=== PATIENT | female | born 1965 | race Caucasian/White ===

== ENCOUNTER 2022-01-07 16:40 | Inpatient (IN) ==
[2022-01-07] MEDS ORDERED: VANCOMYCIN 1,000 MG in 0.9 % SODIUM CHLORIDE 250 ML IV ONE (17:01)
[2022-01-07 17:48] LABS: Basophils # (Auto) 0.03 K/mcL (0.00-0.30); Basophils % (Auto) 0.5 % (0.0-2.0); Eosinophils # (Auto) 0.21 K/mcL (0.00-0.70); Eosinophils % (Auto) 3.5 % (0.0-7.0); Hemoglobin 12.7 g/dL (11.2-15.7); Lymphocytes # (Auto) 2.15 K/mcL (1.50-4.80); Lymphocytes % (Auto) 35.7 % (15.5-49.0); Mean Cell Volume 89.8 fL (80.0-100.0); Mean Corpuscular HGB Conc 34.3 g/dL (31.0-36.0); Mean Platelet Volume 9.6 fL (7.4-10.4); Monocytes # (Auto) 0.42 K/mcL (0.10-0.90); Neutrophils % (Auto) 53.3 % (38.0-78.0); Platelet Count 260 K/mcL (140-440); RBC 4.12 M/mcL (3.59-5.38); Red Cell Distribution Width 12.3 % (11.5-14.5)
[2022-01-07] MEDS ORDERED: PIPERACILLIN SODIUM/TAZOBACTAM 4.5 GM in DEXTROSE 5% IN WATER 50 ML IV ONE (17:54)
[2022-01-07 18:06] LABS: Blood Urea Nitrogen 19 mg/dL (6-20); Calcium 9.4 mg/dL (8.6-10.4); Carbon Dioxide 26 mmol/L (22-30); Chloride 106 mmol/L (96-108); Glomerular Filtration Rate 109; Glucose 108 mg/dL (70-105)
--- NOTE | 2022-01-07 19:02 | Emergency Department Note ---
HPI General Chief complaint: Eye Problems Stated complaint: Eye problems Time Seen by Provider: 01/07/22 16:49 Source: patient Mode of arrival: ambulatory Limitations: no limitations History of Present Illness HPI Narrative: Narrative: 56-year-old female with history of complex left maxillary/zygomatic fracture wit h nerve entrapment, multiple surgeries for revision and infection, now on approximately a month of p.o. antibiotics following with ENT presents for evaluation of facial purulent drainage and erythema and swelling in the same area. She denies fever chills or systemic symptoms. She was sent in by Dr Frances for IV antibiotics and surgical planning Related Data Home Medications Medication Instructions Recorded Confirmed Adult One Daily Multivitamin 1 tab PO DAILY 01/07/22 01/07/22 Calcium-Vitamin D 1 tab PO DAILY 01/07/22 01/07/22 acetaminophen 1,000 mg PO Q6HP PRN 01/07/22 01/07/22 ascorbate calcium (vitamin C) 1 tab PO DAILY 01/07/22 01/07/22 Allergies Allergy/AdvReac Type Severity Reaction Status Date / Time No Known Intolerances Allergy Unknown Verified 01/07/22 16:43 Review of Systems ROS ROS Narrative: Narrative: All systems ED: reviewed and negative except as stated. PFSH Narrative Patient History Narrative: Narrative: Medical/Surgical/Family History All Active Problems (Updated 01/09/22 @ 22:19 by Steve Man DO) Abscess of face (Acute) Social History Smoking Status: Never smoker Exam Narrative Narrative: Narrative: General Limitations: no limitations General appearance: Present alert and in no apparent distress Head Head: Present atraumatic and normocephalic Eye Eye: Present normal appearance, PERRL, EOMI (Left eye extraocular motion sligh tly limited, patient reports this is chronic but does get diplopia with left upward gaze) and periorbital swelling (Left lower lid edema erythema and warmth, purulent drainage from wound underlying the lid) ENT ENT: Present normal exam and normal oropharynx Neck Neck: Present normal inspection and full ROM Chest Chest: Present normal inspection and symmetric chest wall rise Respiratory Respiratory: Absent respiratory distress Cardiovascular Cardiovascular: Present regular rate and normal rhythm Extremities Extremities: Present normal inspection and full ROM Back Back: Present normal inspection and full ROM Neurological Neurological: Present alert, oriented X3 and normal gait Psychiatric Psychiatric: Present normal affect and normal mood Skin Skin: Present warm (WNL), dry and normal color Course Vital Signs Vital signs: Vital Signs Temperature 99.1 F H 01/07/22 16:40 Pulse Rate 78 01/07/22 16:40 Respiratory Rate 14 01/07/22 16:40 Blood Pressure 138/92 01/07/22 16:40 Pulse Oximetry (%) 97 01/07/22 16:40 Temperature 97.9 F 01/09/22 15:28 Pulse Rate 75 01/09/22 15:28 Respiratory Rate 16 01/09/22 15:28 Blood Pressure 113/60 01/09/22 15:28 Pulse Oximetry (%) 98 01/09/22 15:28 MDM MDM Narrative Medical decision making narrative: Narrative: Patient with facial abscess and cellulitis failure of outpatient antibiotics. Sent in by ENT for perioperative antibiotics and surgical planning. She has multiple organisms on prior culture several weeks ago including anaerobic. We will give broad-spectrum IV coverage, admit for planning Lab Data Result diagrams: 01/07/22 17:15 01/09/22 08:00 Labs: Lab Results 01/07/22 01/07/22 Range/Units 17:15 17:15 WBC 6.0 (4.5-11.0) K/mcL RBC 4.12 (3.59-5.38) M/mcL Hgb 12.7 (11.2-15.7) g/dL Hct 37.0 (34.1-44.9) % MCV 89.8 (80.0-100.0) fL MCH 30.8 (26.0-34.0) pg MCHC 34.3 (31.0-36.0) g/dL RDW 12.3 (11.5-14.5) % Plt Count 260 (140-440) K/mcL MPV 9.6 (7.4-10.4) fL Neut % (Auto) 53.3 (38.0-78.0) % Lymph % (Auto) 35.7 (15.5-49.0) % [place] % (Auto) 7.0 (1.0-12.0) % Eos % (Auto) 3.5 (0.0-7.0) % Baso % (Auto) 0.5 (0.0-2.0) % Lymph # (Auto) 2.15 (1.50-4.80) K/mcL [place] # (Auto) 0.42 (0.10-0.90) K/mcL Eos # (Auto) 0.21 (0.00-0.70) K/mcL Baso # (Auto) 0.03 (0.00-0.30) K/mcL Absolute Neutrophils 3.22 (1.80-8.00) K/mcL Sodium 140 (133-145) mmol/L Potassium 4.0 (3.3-5.1) mmol/L Chloride 106 (96-108) mmol/L Carbon Dioxide 26 (22-30) mmol/L Anion Gap 8.0 (8.0-16.0) BUN 19 (6-20) mg/dL Creatinine 0.5 L (0.6-1.1) mg/dL GFR Calculation 109 Glucose 108 H (70-105) mg/dL Calcium 9.4 (8.6-10.4) mg/dL ED POC Tests ED POC Tests: BOYD - SARS Antigen Negative Discharge Plan Patient/Caregiver Discharge Instructions Pt seen by BARREL WATERER/PA only: No Clinical Impression: Abscess of face Patient Disposition: Still a Patient Condition: Good Discharge Date/Time: 01/07/22 21:29 Discharge Location: [facility] [facility] Discharge Comment: to room 132
--- NOTE | 2022-01-07 20:50 | Internal Med History&Physical ---
HPI History of Present Illness Patient information: Note initiated : 01/07/22 at 8:44 pm Service Date, if different from initiated Date: [] Patient: Kat Stanton a 56 y/o F admitted on for Eye problems. Chief Complaint: [] Chief complaint: Facial cellulitis and surgical site infection. History of present illness: Ms. Stanton is a 56 year old female with a history of being kicked by a horse in the face on December 08 followed by facial reconstruction involving hardware placement that was unfortunately complicated by a surgical site infection. The patient has received multiple courses of Augmentin however continues to have facial edema and pus draining from a surgical incision under her left eye. My understanding is that the patient had 1 piece of hardware removed but continued to have purulent drainage from the surgical incision. The patient contacted Dr. Crowe with ENT regarding this infection, Dr. Crowe informed the patient to go to the [facility] emergency department for admission for an tibiotics and surgical intervention. The patient arrives to the emergency department in stable condition, vitals are normal except for high-grade temperature 99.1. CBC was normal, renal function panel was unremarkable. The patient was started on vancomycin and Zosyn in the emergency department. Hospital medicine consulted for admission. Review of systems Constitutional: no fever, fatigue, or weight loss HENT: Left infraorbital edema, purulent fluid draining from infraorbital incision. Eyes: no vision changes or pain Cardiovascular: no chest pain, no palpitations Respiratory: no cough or dyspnea Gastrointestinal: no abdominal pain, no nausea, vomiting, or diarrhea Genitourinary: no dysuria or difficulty voiding Musculoskeletal: no arthralgia or myalgia Integumentary: no skin lesion or wound Neurological: no focal weakness or numbness Psychiatric: no anxiety or depression Physical exam Head: Edema below orbit, purulent fluid draining from surgical incision. Eyes: normal appearance, no scleral icterus. Neck: full ROM Respiratory: no respiratory distress. Cardiovascular: normal rate and rhythm, S1, S2. GI/Abdominal: soft, nontender, no guarding. Extremities: full range of motion, nontender. Neurological: CN II-XII intact, intact motor, intact sensation. Psychiatric: normal mood. Skin: warm, normal color MEDS/ALLERGIES Home Medications and Allergies Allergies Allergy/AdvReac Type Severity Reaction Status Date / Time No Known Intolerances Allergy Unknown Verified 01/07/22 16:43 EXAM Constitutional Vitals: Temp Pulse Resp BP Pulse Ox 99.1 F H 78 14 138/92 97 01/07/22 16:40 01/07/22 16:40 01/07/22 16:40 01/07/22 16:40 01/07/22 16:40 DATA Data Completed and Pending Labs: Labs from last 24 hours 01/07/22 01/07/22 17:15 17:15 WBC 6.0 RBC 4.12 Hgb 12.7 Hct 37.0 MCV 89.8 MCH 30.8 MCHC 34.3 RDW 12.3 Plt Count 260 MPV 9.6 Neut % (Auto) 53.3 Lymph % (Auto) 35.7 Gem % (Auto) 7.0 Eos % (Auto) 3.5 Baso % (Auto) 0.5 Lymph # (Auto) 2.15 Gem # (Auto) 0.42 Eos # (Auto) 0.21 Baso # (Auto) 0.03 Absolute Neutrophils 3.22 Sodium 140 Potassium 4.0 Chloride 106 Carbon Dioxide 26 Anion Gap 8.0 BUN 19 Creatinine 0.5 L GFR Calculation 109 Glucose 108 H Calcium 9.4 Preliminary micro results at discharge 01/07/22 17:22 Gram Stain - Preliminary Face - Left A/P Narrative A/P Narrative: Assessment: 56-year-old female with a history of being kicked in the face by a horse in early December followed by facial reconstructive surgery involving hardware unfortunately complicated by a surgical site infection. The patient presented to [facility] for admission for IV antibiotics and consultation by ENT. ENT is planning for surgery. Plan -Vancomycin and Zosyn. -Analgesics as needed. -Bowel regimen. -Type and screen. -CRP -ENT consulted. -N.p.o. after midnight. -CODE STATUS: Hydrometeorological Technician Spent With Patient Time: Total time spent is greater than 50% in coordination of care (as documented) at patient's floor/unit and/or counseling patient:
[2022-01-07] MEDS ORDERED: HYDROcodone/APAP 5/325MG TABLET PO PRN (21:38)
[2022-01-07] MEDS ORDERED: ONDANSETRON 4 MG/2 ML VIAL IV PRN (21:38)
[2022-01-07] MEDS ORDERED: POLYETHYLENE GLYCOL 3350 17 GM PACKET PO PRN (21:38)
[2022-01-07] MEDS ORDERED: VANCOMYCIN PER PHARMACY IV ONE (21:38)
[2022-01-07] MEDS ORDERED: ACETAMINOPHEN 325 MG TABLET PO PRN (21:38)
[2022-01-07] MEDS ORDERED: IBUPROFEN 600 MG TABLET PO PRN (21:38)
[2022-01-07] MEDS ORDERED: 0.9 % SODIUM CHLORIDE 250 ML IV SCH (21:38)
[2022-01-07] MEDS: SENNOSIDES 1 TABLET PO SCH (21:56)
[2022-01-07] MEDS: 0.9 % SODIUM CHLORIDE 10 ML SYRINGE IV SCH (22:22)
[2022-01-08] MEDS: PIPERACILLIN SODIUM/TAZOBACTAM 4.5 GM in DEXTROSE 5% IN WATER 50 ML IV SCH ×4 (00:03→18:09)
[2022-01-08] MEDS: 0.9 % SODIUM CHLORIDE 10 ML SYRINGE IV SCH ×4 (05:13→22:37)
[2022-01-08] MEDS ORDERED: VANCOMYCIN PER PHARMACY IV SCH (06:00)
[2022-01-08 07:36] LABS: C-Reactive Protein < 0.30 mg/dL (0.03-0.80)
[2022-01-08] MEDS: VANCOMYCIN 1,000 MG in 0.9 % SODIUM CHLORIDE 250 ML IV SCH ×2 (09:11→20:54)
[2022-01-08] MEDS ORDERED: ACETAMINOPHEN 650 MG/65 ML BAG IV PRN (09:23)
[2022-01-08] MEDS ORDERED: HYDROmorphone 0.5 MG/0.5 ML SYRINGE IV PRN (09:23)
[2022-01-08] MEDS ORDERED: SCOPOLAMINE 1 PATCH PATCH TOPICAL ONE (10:00)
[2022-01-08] MEDS ORDERED: IPRATROPIUM/ALBUTEROL 3 ML AMPUL.NEB NEB PRN ×2 (11:47→15:30)
[2022-01-08] MEDS ORDERED: diphenhydrAMINE 50 MG/ML VIAL ONE (13:35)
[2022-01-08] MEDS ORDERED: LIDOCAINE HCL/PF 100 MG/5 ML SYRINGE IV ONE (13:35)
[2022-01-08] MEDS ORDERED: PROMETHAZINE 25 MG/ML VIAL ONE (13:35)
[2022-01-08] MEDS ORDERED: DEXAMETHASONE 10 MG/ML VIAL ONE (13:35)
[2022-01-08] MEDS ORDERED: METOCLOPRAMIDE 10 MG/2 ML VIAL ONE (13:35)
[2022-01-08] MEDS ORDERED: ROCURONIUM 10 MG/ML ML IV ONE (13:35)
[2022-01-08] MEDS ORDERED: GLYCOPYRROLATE 0.2 MG/ML VIAL IV ONE (13:35)
[2022-01-08] MEDS ORDERED: FAMOTIDINE/PF 20 MG/2 ML VIAL IV ONE (13:35)
[2022-01-08] MEDS ORDERED: KETAMINE 50 MG/ML Syringe (ANEST) IV ONE (13:35)
[2022-01-08] MEDS ORDERED: TRANEXAMIC ACID 1,000 MG/10 ML VIAL ONE (13:35)
[2022-01-08] MEDS ORDERED: MAGNESIUM SULFATE 2 GM/50 ML BAG IV ONE (13:35)
[2022-01-08] MEDS ORDERED: PROPOFOL 200 MG/20 ML VIAL IV ONE (13:35)
[2022-01-08] MEDS ORDERED: fentaNYL 100 MCG/2 ML VIAL IV ONE (13:35)
[2022-01-08] MEDS ORDERED: SUGAMMADEX SODIUM 200 MG/2 ML VIAL IV ONE (13:35)
[2022-01-08] MEDS ORDERED: ONDANSETRON 4 MG/2 ML VIAL ONE (13:35)
[2022-01-08] MEDS ORDERED: LIDOCAINE W/EPI 1% 20 ML VIAL IJ ONE (14:10)
[2022-01-08] MEDS ORDERED: OXYMETAZOLINE 1 NASAL SPRAY BOTTLE NAS ONE (14:54)
[2022-01-08] MEDS ORDERED: [UNRECOGNIZED DRUG - OTHER] OU ONE (14:55)
[2022-01-08] MEDS ORDERED: fentaNYL 100 MCG/2 ML VIAL IV PRN (15:30)
[2022-01-08] MEDS ORDERED: ONDANSETRON 4 MG/2 ML VIAL IV PRN (15:30)
[2022-01-08] MEDS ORDERED: LACTATED RINGERS 250 ML IV PRN (15:30)
[2022-01-08] MEDS ORDERED: ACETAMINOPHEN 1,000 MG/100 ML BAG IV ONE (15:30)
[2022-01-08] MEDS ORDERED: MEPERIDINE 25 MG/ML VIAL IV PRN (15:30)
[2022-01-08] MEDS ORDERED: LACTATED RINGERS 1,000 ML IV SCH (15:30)
[2022-01-08] MEDS ORDERED: PROMETHAZINE 25 MG/ML VIAL IV PRN (15:30)
[2022-01-08] MEDS ORDERED: NALOXONE HCL 0.4 MG/ML VIAL IV PRN (15:30)
[2022-01-08] MEDS: KETOROLAC 15 MG/ML VIAL IV PRN (15:51)
--- NOTE | 2022-01-08 16:10 | Internal Med Progress Note ---
SUBJECTIVE Subjective Patient information: Note initiated : 01/08/22 at 4:10 pm Service Date, if different from initiated Date: [] Patient: Kat Stanton a 56 y/o F admitted on 01/07/22 for Eye problems. Chief Complaint: [] Interval history: Ms. Stanton is a 56 year old female with a history of being kicked by a horse in the face on December 08 followed by facial reconstruction involving hardware placement that was unfortunately complicated by a surgical site infection. The patient has received multiple courses of Augmentin however continues to have facial edema and pus draining from a surgical incision under her left eye. My understanding is that the patient had 1 piece of hardware removed but continued to have purulent drainage from the surgical incision. The patient contacted Dr. Crowe with ENT regarding this infection, Dr. Crowe informed the patient to go to the [facility] emergency department for admission for a ntibiotics and surgical intervention. The patient arrives to the emergency department in stable condition, vitals are normal except for high-grade temperature 99.1. CBC was normal, renal function panel was unremarkable. The patient was started on vancomycin and Zosyn in the emergency department. Hospital medicine consulted for admission. 01/08 Going to surgery today. Physical exam Head: Edema below orbit, purulent fluid draining from surgical incision. Eyes: normal appearance, no scleral icterus. Neck: full ROM Respiratory: no respiratory distress. Cardiovascular: normal rate and rhythm, S1, S2. GI/Abdominal: soft, nontender, no guarding. Extremities: full range of motion, nontender. Neurological: CN II-XII intact, intact motor, intact sensation. Psychiatric: normal mood. Skin: warm, normal color Constitutional Vitals: Vital Signs Temp Pulse Resp BP Pulse Ox 99.3 F H 91 H 19 124/88 96 01/08/22 16:07 01/08/22 16:07 01/08/22 16:07 01/08/22 16:06 01/08/22 16:07 Period Temp Pulse Resp BP Sys/Kee Pulse Ox Last 24 Hr 97.7 F-99.8 F 71-95 8-28 108-144/71-96 95-100 Intake and Output 01/08/22 01/08/22 01/08/22 05:59 13:59 21:59 Intake Total 284 005 7190 Output Total 300 150 Balance 75 365 1150 Weight 78.88 kg Patient Weight 01/09/22 05:59 Weight 78.88 kg Intake & Output: Intake & Output 01/08/22 01/08/22 01/08/22 05:59 13:59 21:59 Intake Total 496 465 1432 Output Total 300 150 Balance 75 365 1150 Weight 78.88 kg Intake: IV 135 365 Sodium Chloride 0.9% 250 ml @ 35 20 mls/hr IV .[id number] [facility] Rx#: [id number] Zosyn 4.5 gm In Dextrose 5% in 100 50 Water 50 ml @ 100 mls/hr IV Q6H [facility] Rx#:[id number] Vancomycin 1,000 mg In Sodium 250 Chloride 0.9% 250 ml @ 250 mls/ hr IV Q12H [facility] Rx#:[id number] Oral 240 IV - Manual Only 1300 Output: Void Amount 300 Estimated Blood Loss 150 OBJ DATA Labs CBC & Chem 7: 01/07/22 17:15 01/07/22 17:15 Labs: Abnormal Lab Results 01/07/22 17:15 Creatinine 0.5 L Glucose 108 H Meds: Medications Albuterol/Ipratropium (Ipratropium/Albuterol 3 Ml Ampul.Neb) 3 ml NEB ONCE PRN PRN Reason: Wheezing Stop: 01/08/22 17:30 Fentanyl (Fentanyl 100 Mcg/2 Ml Vial) 25 mcg IV Q2M PRN PRN Reason: Pain Stop: 01/08/22 17:31 Hydromorphone HCl (Hydromorphone 0.5 Mg/0.5 Ml Syringe) 0.5 mg IV Q2HP PRN; Protocol PRN Reason: Per Pain Protocol Piperacillin Sod/Tazobactam (Sod 4.5 gm/ Dextrose) 50 mls @ 100 mls/hr IV Q6H [facility]; Protocol Last Infusion: 01/08/22 13:25 Dose: Infused Documented by: Vancomycin HCl 1,000 mg/ (Sodium Chloride) 250 mls @ 250 mls/hr IV Q12H [facility] Last Infusion: 01/08/22 10:48 Dose: Infused Documented by: Acetaminophen (Ofirmev) 650 mg in 65 mls @ 130 mls/hr IV Q6HP PRN; Protocol PRN Reason: PAIN/FEVER > 101 Last Infusion: 01/08/22 12:12 Dose: Infused Documented by: Lactated Ringer's (Lactated Ringers) 1,000 mls @ 0 mls/hr IV PRN PRN PRN Reason: Hypovolemia Stop: 01/08/22 17:30 Lactated Ringer's (Lactated Ringers) 1,000 mls @ 20 mls/hr IV .Q24H [facility] Stop: 01/08/22 17:31 Ketorolac Tromethamine (Ketorolac 15 Mg/Ml Vial) 15 mg IV Q6HP PRN PRN Reason: Pain Stop: 01/10/22 09:27 Last Admin: 01/08/22 15:51 Dose: 15 mg Documented by: Meperidine HCl (Meperidine 25 Mg/Ml Vial) 12.5 mg IV Q5M PRN PRN Reason: Shivering Stop: 01/08/22 17:31 Last Admin: 01/08/22 15:54 Dose: 12.5 mg Documented by: Naloxone HCl (Naloxone Hcl 0.4 Mg/Ml Vial) 0.1 mg IV Q2MIN PRN PRN Reason: Opiate Reversal Stop: 01/08/22 17:31 Ondansetron HCl (Ondansetron 4 Mg/2 Ml Vial) 4 mg IV Q6HP PRN PRN Reason: Nausea And Vomiting Ondansetron HCl (Ondansetron 4 Mg/2 Ml Vial) 4 mg IV ONCE PRN PRN Reason: Nausea And Vomiting Stop: 01/08/22 17:31 Polyethylene Glycol (Polyethylene Glycol 3350 17 Gm Packet) 17 gm PO DAILYP PRN PRN Reason: Constipation Promethazine HCl (Promethazine 25 Mg/Ml Vial) 6.25 mg IV Q15M PRN PRN Reason: Nausea And Vomiting Stop: 01/08/22 17:31 Senna (Sennosides 1 Tablet) 2 tab PO HS [facility] Last Admin: 01/07/22 21:56 Dose: Not Given Documented by: Sodium Chloride (0.9 % Sodium Chloride 10 Ml Syringe) 10 ml IV Q8 [facility] Last Admin: 01/08/22 13:02 Dose: Not Given Documented by: Vancomycin HCl (Vancomycin Per Pharmacy) 1 order IV UD [facility]; Protocol A/P Narrative A/P Narrative: Assessment: 56-year-old female with a history of being kicked in the face by a horse in early December followed by facial reconstructive surgery involving hardware unfortunately complicated by a surgical site infection. The patient presented to [facility] for admission for IV antibiotics and consultation by ENT. ENT is planning for surgery. Plan -Vancomycin and Zosyn. -Analgesics as needed. -Bowel regimen. -Surgery today. -ENT consulted. -N.p.o. after midnight. -CODE STATUS: Preservationist Spent With Patient Time: Total time spent is greater than 50% in coordination of care (as documented) at patient's floor/unit and/or counseling patient: QUALITY VTE Deep Vein Thrombosis/Pulmonary Embolism Present on Admission: No
[2022-01-08] MEDS ORDERED: morphine 2 MG/ML VIAL IV PRN (16:13)
[2022-01-08] MEDS ORDERED: 0.9 % SODIUM CHLORIDE 10 ML SYRINGE IV PRN (18:38)
[2022-01-08] MEDS: BACITRACIN TOPICAL OINT 15 GM TUBE TOPICAL SCH (20:54)
[2022-01-08] MEDS: SENNOSIDES 1 TABLET PO SCH (20:54)
[2022-01-09] MEDS: PIPERACILLIN SODIUM/TAZOBACTAM 4.5 GM in DEXTROSE 5% IN WATER 50 ML IV SCH ×5 (00:22→23:45)
[2022-01-09] MEDS: KETOROLAC 15 MG/ML VIAL IV PRN ×4 (04:26→23:44)
[2022-01-09] MEDS: 0.9 % SODIUM CHLORIDE 10 ML SYRINGE IV SCH ×6 (05:24→21:02)
[2022-01-09] MEDS: VANCOMYCIN 1,500 MG in 0.9 % SODIUM CHLORIDE 500 ML IV SCH ×2 (10:24→20:59)
[2022-01-09] MEDS: BACITRACIN TOPICAL OINT 15 GM TUBE TOPICAL SCH ×2 (10:24→21:01)
[2022-01-09 11:30] LABS: Glomerular Filtration Rate 103
[2022-01-09] MEDS: VANCOMYCIN 1,000 MG in 0.9 % SODIUM CHLORIDE 250 ML IV SCH (12:14)
--- NOTE | 2022-01-09 15:11 | Internal Med Progress Note ---
SUBJECTIVE Subjective Patient information: Note initiated : 01/09/22 at 3:09 pm Service Date, if different from initiated Date: [] Patient: Kat Stanton a 56 y/o F admitted on 01/07/22 for Eye problems. Chief Complaint: [] Interval history: Ms. Stanton is a 56 year old female with a history of being kicked by a horse in the face on December 08 followed by facial reconstruction involving hardware placement that was unfortunately complicated by a surgical site infection. The patient has received multiple courses of Augmentin however continues to have facial edema and pus draining from a surgical incision under her left eye. My understanding is that the patient had 1 piece of hardware removed but continued to have purulent drainage from the surgical incision. The patient contacted Dr. Crowe with ENT regarding this infection, Dr. Crowe informed the patient to go to the [facility] emergency department for admission for a ntibiotics and surgical intervention. The patient arrives to the emergency department in stable condition, vitals are normal except for high-grade temperature 99.1. CBC was normal, renal function panel was unremarkable. The patient was started on vancomycin and Zosyn in the emergency department. Hospital medicine consulted for admission. 01/08 Going to surgery today. 01/09 Feeling ok post op, ENT recommends IV antibiotic at discharge that will cover gram negative including pseudomonas and anaerobes. Currently on Vancomycin and Zosyn. Physical exam Head: Edema resolved, facial hardware removed. Eyes: normal appearance, no scleral icterus. Neck: full ROM Respiratory: no respiratory distress. Cardiovascular: normal rate and rhythm, S1, S2. GI/Abdominal: soft, nontender, no guarding. Extremities: full range of motion, nontender. Neurological: CN II-XII intact, intact motor, intact sensation. Psychiatric: normal mood. Skin: warm, normal color Constitutional Vitals: Vital Signs Temp Pulse Resp BP Pulse Ox 98 F 77 18 114/65 96 01/09/22 11:35 01/09/22 11:35 01/09/22 11:35 01/09/22 11:35 01/09/22 11:35 Period Temp Pulse Resp BP Sys/Kee Pulse Ox Last 24 Hr 98 F-99.4 F 70-95 8-28 102-142/57-89 93-100 Intake and Output 01/09/22 01/09/22 01/09/22 05:59 13:59 21:59 Intake Total 450 600 Balance 450 600 Intake & Output: Intake & Output 01/09/22 01/09/22 01/09/22 05:59 13:59 21:59 Intake Total 450 600 Balance 450 600 Intake: IV 300 600 Zosyn 4.5 gm In Dextrose 5% in 50 100 Water 50 ml @ 100 mls/hr IV Q6H [facility] Rx#:[id number] Vancomycin 1,000 mg In Sodium 250 Chloride 0.9% 250 ml @ 250 mls/ hr IV Q12H [facility] Rx#:[id number] Vancomycin 1,500 mg In Sodium 500 Chloride 0.9% 500 ml @ 333.3 mls/hr IV Q12H [facility] Rx#: [id number] Oral 150 OBJ DATA Labs CBC & Chem 7: 01/07/22 17:15 01/09/22 08:00 Labs: Abnormal Lab Results 01/07/22 17:15 Creatinine 0.5 L Glucose 108 H Meds: Medications Bacitracin (Bacitracin Topical Oint 15 Gm Tube) 1 dose TOPICAL BID [facility] Last Admin: 01/09/22 10:24 Dose: 1 dose Documented by: Heparin Sodium (Porcine) (Heparin Flush 10 Units/Ml 5 Ml Syringe) 2 ml IV Q12 [facility] Last Admin: 01/09/22 09:04 Dose: Not Given Documented by: Hydromorphone HCl (Hydromorphone 0.5 Mg/0.5 Ml Syringe) 0.5 mg IV Q2HP PRN; Protocol PRN Reason: Per Pain Protocol Piperacillin Sod/Tazobactam (Sod 4.5 gm/ Dextrose) 50 mls @ 100 mls/hr IV Q6H [facility]; Protocol Last Infusion: 01/09/22 13:57 Dose: Infused Documented by: Acetaminophen (Ofirmev) 650 mg in 65 mls @ 130 mls/hr IV Q6HP PRN; Protocol PRN Reason: PAIN/FEVER > 101 Last Infusion: 01/08/22 12:12 Dose: Infused Documented by: Vancomycin HCl 1,500 mg/ (Sodium Chloride) 500 mls @ 333.3 mls/hr IV Q12H [facility] Last Infusion: 01/09/22 12:48 Dose: Infused Documented by: Ketorolac Tromethamine (Ketorolac 15 Mg/Ml Vial) 15 mg IV Q6HP PRN PRN Reason: Pain Stop: 01/10/22 09:27 Last Admin: 01/09/22 10:30 Dose: 15 mg Documented by: Morphine Sulfate (Morphine 2 Mg/Ml Vial) 2 mg IV Q4HP PRN; Protocol PRN Reason: Per Pain Protocol Ondansetron HCl (Ondansetron 4 Mg/2 Ml Vial) 4 mg IV Q6HP PRN PRN Reason: Nausea And Vomiting Polyethylene Glycol (Polyethylene Glycol 3350 17 Gm Packet) 17 gm PO DAILYP PRN PRN Reason: Constipation Senna (Sennosides 1 Tablet) 2 tab PO HS [facility] Last Admin: 01/08/22 20:54 Dose: 2 tab Documented by: Sodium Chloride (0.9 % Sodium Chloride 10 Ml Syringe) 10 ml IV Q8 [facility] Last Admin: 01/09/22 05:24 Dose: 10 ml Documented by: Sodium Chloride (0.9 % Sodium Chloride 10 Ml Syringe) 10 ml IV UD PRN PRN Reason: FLUSH Sodium Chloride (0.9 % Sodium Chloride 10 Ml Syringe) 10 ml IV Q12 [facility] Last Admin: 01/09/22 09:04 Dose: 10 ml Documented by: Vancomycin HCl (Vancomycin Per Pharmacy) 1 order IV UD [facility]; Protocol A/P Narrative A/P Narrative: Assessment: 56-year-old female with a history of being kicked in the face by a horse in early December followed by facial reconstructive surgery involving hardware unfortunately complicated by a surgical site infection. The patient presented to [facility] for admission for IV antibiotics and consultation by ENT. ENT is planning for surgery. Plan -Vancomycin and Zosyn while inpatient. -Analgesics as needed. -Will need PICC line for outpatient IV antibiotics. -Bowel regimen. -Surgery today. -ENT consulted. -Regular diet. -CODE STATUS: Full -Disposition: home with outpatient IV antibiotics via PICC for about 3 weeks. Time Spent With Patient Time: Total time spent is greater than 50% in coordination of care (as documented) at patient's floor/unit and/or counseling patient: QUALITY VTE Deep Vein Thrombosis/Pulmonary Embolism Present on Admission: No
[2022-01-09] MEDS ORDERED: 0.9 % SODIUM CHLORIDE 10 ML SYRINGE IV PRN (20:08)
[2022-01-09] MEDS: SENNOSIDES 1 TABLET PO SCH (22:40)
[2022-01-10] MEDS: 0.9 % SODIUM CHLORIDE 10 ML SYRINGE IV SCH ×6 (05:22→20:52)
[2022-01-10] MEDS: PIPERACILLIN SODIUM/TAZOBACTAM 4.5 GM in DEXTROSE 5% IN WATER 50 ML IV SCH (05:22)
--- NOTE | 2022-01-10 05:58 | Internal Med Progress Note ---
SUBJECTIVE Subjective Patient information: Note initiated : 01/10/22 at 5:56 am Service Date, if different from initiated Date: [] Patient: Kat Stanton a 56 y/o F admitted on 01/07/22 for Eye problems. Chief Complaint: [] Interval history: Ms. Stanton is a 56 year old female with a history of being kicked by a horse in the face on December 08 followed by facial reconstruction involving hardware placement that was unfortunately complicated by a surgical site infection. The patient has received multiple courses of Augmentin however continues to have facial edema and pus draining from a surgical incision under her left eye. My understanding is that the patient had 1 piece of hardware removed but continued to have purulent drainage from the surgical incision. The patient contacted Dr. Crowe with ENT regarding this infection, Dr. Crowe informed the patient to go to the [facility] emergency department for admission for a ntibiotics and surgical intervention. The patient arrives to the emergency department in stable condition, vitals are normal except for high-grade temperature 99.1. CBC was normal, renal function panel was unremarkable. The patient was started on vancomycin and Zosyn in the emergency department. Hospital medicine consulted for admission. 01/08 Going to surgery today. 01/09 Feeling ok post op, ENT recommends IV antibiotic at discharge that will cover gram positives, gram negatives including pseudomonas and anaerobes. Dr. Crowe does not feel that MRSA antibiotic coverage is necessary. Currently on Vancomycin and Zosyn. 01/10 Transition to vancomycin and meropenem, MRSA nasal PCR screen. PICC line may be placed tomorrow depending on availability of qualified staff. Physical exam Head: Edema resolved, facial hardware removed. Eyes: normal appearance, no scleral icterus. Neck: full ROM Respiratory: no respiratory distress. Cardiovascular: normal rate and rhythm, S1, S2. GI/Abdominal: soft, nontender, no guarding. Extremities: full range of motion, nontender. Neurological: CN II-XII intact, intact motor, intact sensation. Psychiatric: normal mood. Skin: warm, normal color Constitutional Vitals: Vital Signs Temp Pulse Resp BP Pulse Ox 98.2 F 67 18 98/62 95 01/10/22 04:00 01/10/22 04:00 01/10/22 04:00 01/10/22 04:00 01/10/22 04:00 Period Temp Pulse Resp BP Sys/Kee Pulse Ox Last 24 Hr 97.9 F-98.9 F 64-79 16-18 98-118/60-77 95-98 Intake and Output 01/09/22 01/09/22 01/10/22 13:59 21:59 05:59 Intake Total 688 457 8494 Output Total 450 800 Balance 600 -120 590 Weight 77.791 kg Patient Weight 01/10/22 05:59 Weight 77.791 kg Intake & Output: Intake & Output 01/09/22 01/09/22 01/10/22 13:59 21:59 05:59 Intake Total 833 503 5618 Output Total 450 800 Balance 600 -120 590 Weight 77.791 kg Intake: IV 600 50 550 Zosyn 4.5 gm In Dextrose 5% in 100 50 50 Water 50 ml @ 100 mls/hr IV Q6H [facility] Rx#:[id number] Vancomycin 1,500 mg In Sodium 500 500 Chloride 0.9% 500 ml @ 333.3 mls/hr IV Q12H [facility] Rx#: [id number] Oral 280 840 Output: Void Amount 450 800 Other: Meal Dinner Percent of Meal Consumed 50% Feeding Ability Independent Urine Appearance Clear Clear Urine Color Light Altagracia Light Altagracia Dark Altagracia Dark Altagracia Urine Odor Normal Normal OBJ DATA Labs CBC & Chem 7: 01/07/22 17:15 01/09/22 08:00 Labs: Abnormal Lab Results 01/07/22 17:15 Creatinine 0.5 L Glucose 108 H Meds: Medications Bacitracin (Bacitracin Topical Oint 15 Gm Tube) 1 dose TOPICAL BID [facility] Last Admin: 01/09/22 21:01 Dose: 1 dose Documented by: Heparin Sodium (Porcine) (Heparin Flush 10 Units/Ml 5 Ml Syringe) 2 ml IV Q12 [facility] Last Admin: 01/09/22 19:33 Dose: Not Given Documented by: Heparin Sodium (Porcine) (Heparin Flush 10 Units/Ml 5 Ml Syringe) 2 ml IV Q12 S Last Admin: 01/09/22 21:01 Dose: Not Given Documented by: Hydromorphone HCl (Hydromorphone 0.5 Mg/0.5 Ml Syringe) 0.5 mg IV Q2HP PRN; Protocol PRN Reason: Per Pain Protocol Piperacillin Sod/Tazobactam (Sod 4.5 gm/ Dextrose) 50 mls @ 100 mls/hr IV Q6H [facility]; Protocol Last Admin: 01/10/22 05:22 Dose: 100 mls/hr Documented by: Acetaminophen ([facility]) 650 mg in 65 mls @ 130 mls/hr IV Q6HP PRN; Protocol PRN Reason: PAIN/FEVER > 101 Last Infusion: 01/08/22 12:12 Dose: Infused Documented by: Vancomycin HCl 1,500 mg/ (Sodium Chloride) 500 mls @ 333.3 mls/hr IV Q12H [facility] Last Infusion: 01/09/22 23:45 Dose: Infused Documented by: Ketorolac Tromethamine (Ketorolac 15 Mg/Ml Vial) 15 mg IV Q6HP PRN PRN Reason: Pain Stop: 01/10/22 09:27 Last Admin: 01/09/22 23:44 Dose: 15 mg Documented by: Morphine Sulfate (Morphine 2 Mg/Ml Vial) 2 mg IV Q4HP PRN; Protocol PRN Reason: Per Pain Protocol Ondansetron HCl (Ondansetron 4 Mg/2 Ml Vial) 4 mg IV Q6HP PRN PRN Reason: Nausea And Vomiting Polyethylene Glycol (Polyethylene Glycol 3350 17 Gm Packet) 17 gm PO DAILYP PRN PRN Reason: Constipation Senna (Sennosides 1 Tablet) 2 tab PO HS [facility] Last Admin: 01/09/22 22:40 Dose: Not Given Documented by: Sodium Chloride (0.9 % Sodium Chloride 10 Ml Syringe) 10 ml IV Q8 [facility] Last Admin: 01/10/22 05:22 Dose: 10 ml Documented by: Sodium Chloride (0.9 % Sodium Chloride 10 Ml Syringe) 10 ml IV UD PRN PRN Reason: FLUSH Sodium Chloride (0.9 % Sodium Chloride 10 Ml Syringe) 10 ml IV Q12 [facility] Last Admin: 01/09/22 21:02 Dose: Not Given Documented by: Sodium Chloride (0.9 % Sodium Chloride 10 Ml Syringe) 10 ml IV UD PRN PRN Reason: FLUSH Sodium Chloride (0.9 % Sodium Chloride 10 Ml Syringe) 10 ml IV Q12 [facility] Last Admin: 01/09/22 21:00 Dose: 10 ml Documented by: Vancomycin HCl (Vancomycin Per Pharmacy) 1 order IV UD [facility]; Protocol A/P Narrative A/P Narrative: Assessment: 56-year-old female with a history of being kicked in the face by a horse in early December followed by facial reconstructive surgery involving hardware unfortunately complicated by a surgical site infection. The patient presented to [facility] for admission for IV antibiotics and consultation by ENT. The patient underwent surgery with removal of hardware. ENT felt the patient would need about 3 weeks of IV antibiotics via PICC line. ENT did not feel the patient would need MRSA coverage but would need coverage for other gram-positive's, gram-negative including Pseudomonas, anaerobes. Plan -Start meropenem IV every 8 hours. -Discontinue Zosyn -Continue vancomycin for now -MRSA nasal PCR. -Analgesics as needed. -Will need PICC line for outpatient IV antibiotics. -Bowel regimen. -ENT following. -Regular diet. -CODE STATUS: Full -Disposition: home with outpatient IV antibiotics via PICC for about 3 weeks with ENT follow-up. After infection has cleared the patient will need to follow-up with plastic surgery for facial reconstructive surgery. Time Spent With Patient Time: Total time spent is greater than 50% in coordination of care (as documented) at patient's floor/unit and/or counseling patient: QUALITY VTE Deep Vein Thrombosis/Pulmonary Embolism Present on Admission: No
[2022-01-10] MEDS ORDERED: HYDROcodone/APAP 5/325MG TABLET PO PRN (06:00)
[2022-01-10] MEDS ORDERED: MEROPENEM 1 GM in 0.9 % SODIUM CHLORIDE 50 ML IV SCH (08:00)
[2022-01-10] MEDS: MEROPENEM 1 GM in 0.9 % SODIUM CHLORIDE 50 ML IV SCH ×3 (08:16→20:49)
[2022-01-10] MEDS: BACITRACIN TOPICAL OINT 15 GM TUBE TOPICAL SCH ×2 (08:17→20:49)
[2022-01-10] MEDS ORDERED: VANCOMYCIN PER PHARMACY IV SCH (09:14)
[2022-01-10] MEDS: VANCOMYCIN 1,500 MG in 0.9 % SODIUM CHLORIDE 500 ML IV SCH ×2 (12:14→20:50)
--- NOTE | 2022-01-10 15:48 | Internal Med Progress Note ---
SUBJECTIVE Subjective Patient information: Note initiated : 01/10/22 at 3:39 pm Service Date, if different from initiated Date: [] Patient: Kat Stanton a 56 y/o F admitted on 01/07/22 for Eye problems. Chief Complaint: [] Interval history: Ms. Stanton is a 56 year old female with a history of being kicked by a horse in the face on December 08 followed by facial reconstruction involving hardware placement that was unfortunately complicated by a surgical site infection. The patient has received multiple courses of Augmentin however continues to have facial edema and pus draining from a surgical incision under her left eye. My understanding is that the patient had 1 piece of hardware removed but continued to have purulent drainage from the surgical incision. The patient contacted Dr. Crowe with ENT regarding this infection, Dr. Crowe informed the patient to go to the [facility] emergency department for admission for a ntibiotics and surgical intervention. The patient arrives to the emergency department in stable condition, vitals are normal except for high-grade temperature 99.1. CBC was normal, renal function panel was unremarkable. The patient was started on vancomycin and Zosyn in the emergency department. Hospital medicine consulted for admission. 01/08 Going to surgery today. 01/09 Feeling ok post op, ENT recommends IV antibiotic at discharge that will cover gram positives, gram negatives including pseudomonas and anaerobes. Dr. Crowe does not feel that MRSA antibiotic coverage is necessary. Currently on Vancomycin and Zosyn. 01/10 Transition to vancomycin and meropenem, MRSA nasal PCR screen. PICC line may be placed tomorrow depending on availability of qualified staff. 01/11 Continues on IV antibiotics. MRSA screen negative and will DC vancomycin. Wound culture growing Eikenella corrodens. Review of Systems: Pertinent positive as above. Denies headache/fever/chills/nausea/vomiting/chest or abdominal pain/cough/dyspnea/diarrhea. Otherwise see above. Constitutional Vitals: Vital Signs Temp Pulse Resp BP Pulse Ox 99.1 F H 61 18 104/72 99 01/10/22 12:00 01/10/22 12:00 01/10/22 12:00 01/10/22 12:00 01/10/22 12:00 Period Temp Pulse Resp BP Sys/Kee Pulse Ox Last 24 Hr 98.2 F-99.1 F 58-79 16-18 98-118/62-77 95-99 Intake and Output 01/10/22 01/10/22 01/10/22 05:59 13:59 21:59 Intake Total 1390 150 500 Output Total 800 Balance 590 150 500 Intake & Output: Intake & Output 01/10/22 01/10/22 01/10/22 05:59 13:59 21:59 Intake Total 1390 150 500 Output Total 800 Balance 590 150 500 Intake: IV 550 150 500 Merrem 1 gm In Sodium Chloride 100 0.9% 50 ml @ 100 mls/hr IV Q8H [facility] Rx#:[id number] Zosyn 4.5 gm In Dextrose 5% in 50 50 Water 50 ml @ 100 mls/hr IV Q6H [facility] Rx#:[id number] Vancomycin 1,500 mg In Sodium 500 500 Chloride 0.9% 500 ml @ 333.3 mls/hr IV Q12H [facility] Rx#: [id number] Oral 840 Output: Void Amount 800 Other: Meal Lunch Percent of Meal Consumed 100% Feeding Ability Independent Urine Appearance Clear Urine Color Light Altagracia Dark Altagracia Urine Odor Normal Exam: General: Alert, Awake, No acute Distress Eyes/N/T: EOMI, Head/Neck: Edema resolved, facial hardware removed CV: RRR, No murmurs, Pulm: Clear b/l, no wheezing/rhonchi/rales Abd: soft, nontender, +BS x4 Ext: no clubbing/cyanosis/edema Neuro: Alert, no focal deficits, moves all extremities, Skin: warm/dry OBJ DATA Labs CBC & Chem 7: 01/11/22 05:12 01/11/22 05:12 Labs: Abnormal Lab Results 01/07/22 17:15 Creatinine 0.5 L Glucose 108 H Meds: Medications Acetaminophen (Acetaminophen 325 Mg Tablet) 650 mg PO Q4-6HP PRN; Protocol PRN Reason: Per Pain Protocol Hydrocodone Bitart/Acetaminophen (Hydrocodone/Apap 5/325mg Tablet) 1 tab PO Q6HP PRN; Protocol PRN Reason: Per Pain Protocol Bacitracin (Bacitracin Topical Oint 15 Gm Tube) 1 dose TOPICAL BID [facility] Last Admin: 01/10/22 08:17 Dose: 1 dose Documented by: Heparin Sodium (Porcine) (Heparin Flush 10 Units/Ml 5 Ml Syringe) 2 ml IV Q12 [facility] Last Admin: 01/10/22 08:17 Dose: Not Given Documented by: Heparin Sodium (Porcine) (Heparin Flush 10 Units/Ml 5 Ml Syringe) 2 ml IV Q12 [facility] Last Admin: 01/10/22 08:17 Dose: Not Given Documented by: Meropenem 1 gm/ Sodium (Chloride) 50 mls @ 100 mls/hr IV Q8H [facility]; Protocol Last Infusion: 01/10/22 12:58 Dose: Infused Documented by: Vancomycin HCl 1,500 mg/ (Sodium Chloride) 500 mls @ 333.3 mls/hr IV Q12H [facility] Last Infusion: 01/10/22 15:26 Dose: Infused Documented by: Ibuprofen (Ibuprofen 200 Mg Tablet) 400 mg PO Q4HP PRN; Protocol PRN Reason: Per Pain Protocol Ondansetron HCl (Ondansetron 4 Mg/2 Ml Vial) 4 mg IV Q6HP PRN PRN Reason: Nausea And Vomiting Polyethylene Glycol (Polyethylene Glycol 3350 17 Gm Packet) 17 gm PO DAILYP PRN PRN Reason: Constipation Senna (Sennosides 1 Tablet) 2 tab PO HS [facility] Last Admin: 01/09/22 22:40 Dose: Not Given Documented by: Sodium Chloride (0.9 % Sodium Chloride 10 Ml Syringe) 10 ml IV Q8 [facility] Last Admin: 01/10/22 05:22 Dose: 10 ml Documented by: Sodium Chloride (0.9 % Sodium Chloride 10 Ml Syringe) 10 ml IV UD PRN PRN Reason: FLUSH Last Admin: 01/10/22 08:18 Dose: 10 ml Documented by: Sodium Chloride (0.9 % Sodium Chloride 10 Ml Syringe) 10 ml IV Q12 [facility] Last Admin: 01/10/22 10:05 Dose: 10 ml Documented by: Sodium Chloride (0.9 % Sodium Chloride 10 Ml Syringe) 10 ml IV UD PRN PRN Reason: FLUSH Last Admin: 01/10/22 08:18 Dose: 10 ml Documented by: Sodium Chloride (0.9 % Sodium Chloride 10 Ml Syringe) 10 ml IV Q12 [facility] Last Admin: 01/10/22 10:05 Dose: 10 ml Documented by: Vancomycin HCl (Vancomycin Per Pharmacy) 1 order IV UD [facility]; Protocol A/P Narrative A/P Narrative: A: *Facial cellulitis / surgical site infection (previously kicked in face by horse > reconstructive surgery in December): -seen by ENT who removed hardware (01/09) Plan -ENT felt the patient would need 3-weeks of IV antibiotics via PICC line & did not feel needed MRSA coverage but would need coverage for other gram-positive's & GN's including Pseudomonas & anaerobes -meropenem started -d/c vancomycin -Analgesics as needed -Will need PICC line for outpatient IV antibiotics. -Dr. Crowe following -ppx: SCD Disposition: home with outpatient IV antibiotics via PICC for about 3 weeks with ENT follow-up. After infection has cleared the patient will need to follow-up with plastic surgery for facial reconstructive surgery Time Spent With Patient Time: Total time spent is greater than 50% in coordination of care (as documented) at patient's floor/unit and/or counseling patient: QUALITY VTE Deep Vein Thrombosis/Pulmonary Embolism Present on Admission: No
--- NOTE | 2022-01-10 15:49 | Discharge Summary ---
Discharge Provider Provider Patient information: Note initiated : 01/10/22 at 3:48 pm Service Date, if different from initiated Date: [] Patient: Kat Stanton 56 y/o F admitted on 01/07/22 for Eye problems. Chief Complaint: [] Date of admission: 01/07/22 21:29 Discharge date: 01/12/22 Primary care physician: PCP No Consults: 01/07/22 Consult to Physician [CONS] Stat Comment: Consulting Provider: Chaim Humphrey Reason For Exam: Physician to Consult 01/07/22 21:38 Consult to Physician [CONS] Stat Comment: Consulting Provider: Gerardo Crowe Reason For Exam: Physician to Consult Discharge Meds Discharge Medications Home Medications Adult One Daily Multivitamin 1 tab PO DAILY 01/07/22 [History Confirmed 01/07/22 Last Taken Unknown] Calcium-Vitamin D 1 tab PO DAILY 01/07/22 [History Confirmed 01/07/22 Last Taken Unknown] acetaminophen 1,000 mg PO Q6HP PRN 01/07/22 [History Confirmed 01/07/22 Last Taken Unknown] ascorbate calcium (vitamin C) 1 tab PO DAILY 01/07/22 [History Confirmed 01/07/22 Last Taken Unknown] meropenem 1 gram intravenous solution 1 g IV Q8H 14 Days #42 ea 01/12/22 [Rx Last Taken Unknown] COURSE Hospital Course Hospital course: Interval history: Ms. Stanton is a 56 year old female with a history of being kicked by a horse in the face on December 08 followed by facial reconstruction involving hardware placement that was unfortunately complicated by a surgical site infection. The patient has received multiple courses of Augmentin however continues to have facial edema and pus draining from a surgical incision under her left eye. My understanding is that the patient had 1 piece of hardware removed but continued to have purulent drainage from the surgical incision. The patient contacted Dr. Crowe with ENT regarding this infection, Dr. Crowe informed the patient to go to the [facility] emergency department for admission for antibiotics and surgical intervention. The patient arrives to the emergency department in stable condition, vitals are normal except for high-grade temperature 99.1. CBC was normal, renal function panel was unremarkable. The patient was started on vancomycin and Zosyn in the emergency department. Hospital medicine consulted for admission. 01/08 Going to surgery today. 01/09 Feeling ok post op, ENT recommends IV antibiotic at discharge that will cover gram positives, gram negatives including pseudomonas and anaerobes. Dr. Crowe does not feel that MRSA antibiotic coverage is necessary. Currently on Vancomycin and Zosyn. 01/10 Transition to vancomycin and meropenem, MRSA nasal PCR screen. PICC line may be placed tomorrow depending on availability of qualified staff. 01/11 Continues on IV antibiotics. MRSA screen negative and will DC vancomycin. Wound culture growing Eikenella corrodens. 01/12 PICC line placed. Antibiotics finalized with Dr. Crowe pharmacy to meropenem. A: *Facial cellulitis / surgical site infection (previously kicked in face by horse > reconstructive surgery in December): -seen by ENT who removed hardware (01/09) -WC growing Eikenella corrodens Plan: -ENT felt the patient would need 3-weeks total of IV antibiotics via PICC line & did not feel needed MRSA coverage but would need coverage for other gram- positive's & GN's including Pseudomonas & anaerobes -meropenem started, final abx per pharmacy's discussion with Dr. Crowe -Analgesics as needed -Will need PICC line for outpatient IV antibiotics. -Dr. Crowe following -ppx: SCD Discharge diagnosis: Surgical site infection with facial cellulitis status post facial reconstru Time Spent with Patient Time attestation: Total time spent providing and/or coordinating discharge services: Time spent: Greater than 30 minutes EXAM Constitutional Vitals: Temp Pulse Resp BP Pulse Ox 99.1 F H 61 18 104/72 99 01/10/22 12:00 01/10/22 12:00 01/10/22 12:00 01/10/22 12:00 01/10/22 12:00 Discharge Data Data Completed and Pending Labs on day of discharge: Labs from last 24 hours 01/10/22 09:38 Vancomycin Trough 10.3 Discharge Plan Patient/Caregiver Discharge Instructions Activity: increase activity as tolerated Diet: Regular Diet Activity Restrictions/Additional Instructions: Referral to see plastic surgeon in 5-14 days for facial reconstructive surgery. Follow-up with PCP in 3 to 7 days. Prescriptions: New meropenem 1 gram Recon Soln 1 g IV Q8H 14 Days Qty: 42 0RF Continued Adult One Daily Multivitamin 1 tab PO DAILY 0RF Calcium-Vitamin D 1 tab tablet 1 tab PO DAILY 0RF acetaminophen 500 mg 1,000 mg PO Q6HP PRN (Reason: Pain) 0RF ascorbate calcium (vitamin C) 1 tab 1 tab PO DAILY 0RF Follow Up Plan Follow up with: Gerardo Crowe MD [Physician] - Patient Disposition: Home, Self-Care Prognosis: Fair Overall status at discharge: patient is progressing back to baseline Discharge Orders: Discharge Order (Routine); Ordered 01/12/22 [facility] Th[facility]/Pulmonary Embolism Present on Admission: No
[2022-01-10] MEDS: ACETAMINOPHEN 325 MG TABLET PO PRN (16:33)
[2022-01-10] MEDS: IBUPROFEN 200 MG TABLET PO PRN (20:49)
[2022-01-10] MEDS: SENNOSIDES 1 TABLET PO SCH (20:53)
[2022-01-11] MEDS: 0.9 % SODIUM CHLORIDE 10 ML SYRINGE IV SCH ×5 (04:38→22:15)
[2022-01-11] MEDS: MEROPENEM 1 GM in 0.9 % SODIUM CHLORIDE 50 ML IV SCH ×3 (04:38→22:13)
[2022-01-11 07:12] LABS: Basophils # (Auto) 0.02 K/mcL (0.00-0.30); Basophils % (Auto) 0.5 % (0.0-2.0); Eosinophils # (Auto) 0.21 K/mcL (0.00-0.70); Eosinophils % (Auto) 5.2 % (0.0-7.0); Hematocrit 30.1 % (34.1-44.9); Lymphocytes # (Auto) 1.87 K/mcL (1.50-4.80); Lymphocytes % (Auto) 46.4 % (15.5-49.0); Mean Cell Volume 93.2 fL (80.0-100.0); Mean Corpuscular HGB Conc 33.2 g/dL (31.0-36.0); Monocytes # (Auto) 0.28 K/mcL (0.10-0.90); Monocytes % (Auto) 6.9 % (1.0-12.0); Platelet Count 163 K/mcL (140-440); RBC 3.23 M/mcL (3.59-5.38); Red Cell Distribution Width 12.3 % (11.5-14.5)
[2022-01-11] MEDS: ACETAMINOPHEN 325 MG TABLET PO PRN (07:19)
[2022-01-11 07:35] LABS: ALT/SGPT 25 U/L (<40); AST/SGOT 18 U/L (<32); Albumin 3.4 gm/dL (3.2-5.2); Albumin/Globulin Ratio 1.5 (1.0-2.3); Alkaline Phosphatase 54 U/L (39-117); Bilirubin,Total 0.4 mg/dL (0.1-1.0); Blood Urea Nitrogen 14 mg/dL (6-20); Calcium 8.4 mg/dL (8.6-10.4); Carbon Dioxide 25 mmol/L (22-30); Chloride 108 mmol/L (96-108); Globulin 2.3 gm/dL (2.2-3.7); Glomerular Filtration Rate 109; Glucose 90 mg/dL (70-105)
--- NOTE | 2022-01-11 07:47 | Operative Note ---
DATE OF OPERATION: 01/08/2022 PREOPERATIVE DIAGNOSIS: Persistent facial cellulitis and abscess secondary to facial trauma. POSTOPERATIVE DIAGNOSIS: Persistent facial cellulitis and abscess secondary to facial trauma. PROCEDURES: 1. Removal of left oromaxillary facial hardware and miniplates. 2. Reid-Corby procedure. 3. Endoscopic right maxillary antrostomy. ESTIMATED BLOOD LOSS: Minimal. COMPLICATIONS: None. BLOOD LOSS: Minimal. SPONGE COUNTS: Correct. COMPLICATIONS: None. DESCRIPTION OF PROCEDURE: The patient was administered general anesthetic, and at that point in time, was orally intubated. She had obvious mucoid purulence coming from the incision line in the infraorbital area. This incision, which was previously opened 2 times before, was quite buckled and retracting. This was opened in its previous line, was dissected down to the orbital rim. This was after a standard facial prep and drape as well as timeout performed. Once that was accomplished, a Badger elevator was used to visualize the plate. This was soaked in mucoid purulence and liz pus. The mini plate here was removed, which was a long mini plate. Multiple screws were on the infraorbital rim. These were all removed without difficulty. Once this was accomplished, there was a lateral orbital incision, which was previously made. This was used to access the lateral orbital rim once again. A 50 Bard Tomas blade used to make a cut in this area. Monopolar cautery was used to dissect down to the bone and the miniplate was found. Four screws were seen in this plate and were removed without difficulty. Once this was harvested and attention turned to the mouth, the oral cavity looking underneath the buccal mucosa and the previous gingival buccal sulcus incision, there were two miniplates which had dehisced and were inside the oral cavity with significant purulence. This was opened widely with a Badger elevator. Standard flap over the maxillary sinus on this area was opened and raised up to the infraorbital nerve. There were multiple bone fragments here which were seen. There were two additional plates into this area. Once that was appreciated there was some necrotic bone and bone. There were also multiple loose fragments. All of these miniplates appeared to be loose and mobile. Everything here was removed, two miniplates as well as all the other screws. Once this was done, there was a bony segment, which was freely mobile and moving on that anterior wall. This was harvested, removed and discarded. Below this, there were several other dark black bone chips, which were necrotic and foul-smelling. These were removed and discarded. Inside the maxillary sinus on the left side, the entire maxillary sinus was filled with copious pus. This was suctioned out and several small little chips were seen caught in the Boykin suction and they were removed. Once this was accomplished, attention turned endoscopically to the nose. Maxillary antrostomy was performed on the left side. The middle turbinate was fractured towards the midline. Uncinate was taken down in retrograde manner with a pediatric backbiter and using Crystal forceps, the uncinate was trimmed up to its superior attachments. The antrostomy site was entered in a low medial position and kept low because of the large orbital blowout fracture. Curved olive suction was placed in here. Purulence had already been removed from the intraoral incision; however, the communication from maxillary sinus to the left maxillary sinus was now widely open and should be nonobstructive. With this accomplished, once again maxillary sinus was revisualized. A weak solution Betadine was placed into the maxillary sinus. Copious irrigation was performed and this was suctioned out with a Boykin suction. Two small bone chips were also seen in this area, which were collected. At this point in time, it looked like all mucoid purulence had been removed. All bone chips that were loose or nonviable were removed. The infraorbital region was visualized and I do believe there is a pseudo periosteum that is developing and hopefully will hold that eye up into good position. We are approximately 35 days out from her original placement of miniplates. The wounds began to be closed. The lateral wound was able to be closed with Vicryls as well as with nylons. The infraorbital wound was quite friable and did not want to hold stitch well at all, so it was reapproximated with #1 Vicryl as well as with several nylon sutures in a simple running manner. The intraoral excision was closed with multiple chromic layers with what viable tissue I could find with small little vents noted and left in the posterior aspect. Anesthesia was terminated and she was taken back to PACU in satisfactory condition. JDB:vinny Job ID: [id number] Doc ID: [id number] Lalit Crowe, DO
[2022-01-11] MEDS: VANCOMYCIN 1,500 MG in 0.9 % SODIUM CHLORIDE 500 ML IV SCH (09:04)
[2022-01-11] MEDS: BACITRACIN TOPICAL OINT 15 GM TUBE TOPICAL SCH ×2 (09:04→22:13)
--- NOTE | 2022-01-11 11:54 | Internal Med Progress Note ---
SUBJECTIVE Subjective Patient information: Note initiated : 01/11/22 at 11:53 am Service Date, if different from initiated Date: [] Patient: Kat Stanton 56 y/o F admitted on 01/07/22 for Eye problems. Chief Complaint: [] Interval history: Ms. Stanton is a 56 year old female with a history of being kicked by a horse in the face on December 08 followed by facial reconstruction involving hardware placement that was unfortunately complicated by a surgical site infection. The patient has received multiple courses of Augmentin however continues to have facial edema and pus draining from a surgical incision under her left eye. My understanding is that the patient had 1 piece of hardware removed but continued to have purulent drainage from the surgical incision. The patient contacted Dr. Crowe with ENT regarding this infection, Dr. Crowe informed the patient to go to the [facility] emergency department for admission for antibiotics and surgical intervention. The patient arrives to the emergency department in stable condition, vitals are normal except for high-grade temperature 99.1. CBC was normal, renal function panel was unremarkable. The patient was started on vancomycin and Zosyn in the emergency department. Hospital medicine consulted for admission. 01/08 Going to surgery today. 01/09 Feeling ok post op, ENT recommends IV antibiotic at discharge that will cover gram positives, gram negatives including pseudomonas and anaerobes. Dr. Crowe does not feel that MRSA antibiotic coverage is necessary. Currently on Vancomycin and Zosyn. 01/10 Transition to vancomycin and meropenem, MRSA nasal PCR screen. PICC line may be placed tomorrow depending on availability of qualified staff. 01/11 Continues on IV antibiotics. MRSA screen negative and will DC vancomycin. Wound culture growing Eikenella corrodens. Review of Systems: Pertinent positive as above. Denies headache/fever/chills/nausea/vomiting/chest or abdominal pain/cough/dyspnea/diarrhea. Otherwise see above. Constitutional Vitals: Vital Signs Temp Pulse Resp BP Pulse Ox 97.8 F 61 16 123/79 98 01/11/22 11:39 01/11/22 11:39 01/11/22 11:39 01/11/22 11:39 01/11/22 11:39 Period Temp Pulse Resp BP Sys/Kee Pulse Ox Last 24 Hr 97.7 F-99.8 F 60-74 14-18 104-124/66-87 96-99 Intake and Output 01/10/22 01/11/22 01/11/22 21:59 05:59 13:59 Intake Total 500 1050 740 Balance 500 1050 740 Weight 77.791 kg Intake & Output: Intake & Output 01/10/22 01/11/22 01/11/22 21:59 05:59 13:59 Intake Total 500 1050 740 Balance 500 1050 740 Weight 77.791 kg Intake: IV 500 600 500 Merrem 1 gm In Sodium Chloride 100 0.9% 50 ml @ 100 mls/hr IV Q8H [facility] Rx#:[id number] Vancomycin 1,500 mg In Sodium 500 500 500 Chloride 0.9% 500 ml @ 333.3 mls/hr IV Q12H [facility] Rx#: [id number] Oral 450 240 Other: Meal Breakfast Percent of Meal Consumed 100% # Voids 3 # Bowel Movements 1 Exam: General: Alert, Awake, No acute Distress Eyes/N/T: EOMI, Head/Neck: Edema resolved, facial hardware removed CV: RRR, No murmurs, Pulm: Clear b/l, no wheezing/rhonchi/rales Abd: soft, nontender, +BS x4 Ext: no clubbing/cyanosis/edema Neuro: Alert, no focal deficits, moves all extremities, Skin: warm/dry OBJ DATA Labs CBC & Chem 7: 01/11/22 05:12 01/11/22 05:12 Labs: Abnormal Lab Results 01/11/22 01/11/22 05:12 05:12 WBC 4.0 L RBC 3.23 L Hgb 10.0 L Hct 30.1 L Absolute Neutrophils 1.65 L Creatinine 0.5 L Calcium 8.4 L Total Protein 5.7 L Meds: Medications Acetaminophen (Acetaminophen 325 Mg Tablet) 650 mg PO Q4-6HP PRN; Protocol PRN Reason: Per Pain Protocol Last Admin: 01/11/22 07:19 Dose: 650 mg Documented by: Hydrocodone Bitart/Acetaminophen (Hydrocodone/Apap 5/325mg Tablet) 1 tab PO Q6HP PRN; Protocol PRN Reason: Per Pain Protocol Bacitracin (Bacitracin Topical Oint 15 Gm Tube) 1 dose TOPICAL BID [facility] Last Admin: 01/11/22 09:04 Dose: 1 dose Documented by: Heparin Sodium (Porcine) (Heparin Flush 10 Units/Ml 5 Ml Syringe) 2 ml IV Q12 [facility] Last Admin: 01/11/22 09:05 Dose: Not Given Documented by: Meropenem 1 gm/ Sodium (Chloride) 50 mls @ 100 mls/hr IV Q8H [facility]; Protocol Last Infusion: 01/11/22 05:55 Dose: Infused Documented by: Vancomycin HCl 1,500 mg/ (Sodium Chloride) 500 mls @ 333.3 mls/hr IV Q12H [facility] Last Infusion: 01/11/22 11:30 Dose: Infused Documented by: Ibuprofen (Ibuprofen 200 Mg Tablet) 400 mg PO Q4HP PRN; Protocol PRN Reason: Per Pain Protocol Last Admin: 01/10/22 20:49 Dose: 400 mg Documented by: Ondansetron HCl (Ondansetron 4 Mg/2 Ml Vial) 4 mg IV Q6HP PRN PRN Reason: Nausea And Vomiting Polyethylene Glycol (Polyethylene Glycol 3350 17 Gm Packet) 17 gm PO DAILYP PRN PRN Reason: Constipation Senna (Sennosides 1 Tablet) 2 tab PO HS [facility] Last Admin: 01/10/22 20:53 Dose: Not Given Documented by: Sodium Chloride (0.9 % Sodium Chloride 10 Ml Syringe) 10 ml IV Q8 [facility] Last Admin: 01/11/22 04:38 Dose: 10 ml Documented by: Sodium Chloride (0.9 % Sodium Chloride 10 Ml Syringe) 10 ml IV UD PRN PRN Reason: FLUSH Last Admin: 01/10/22 08:18 Dose: 10 ml Documented by: Sodium Chloride (0.9 % Sodium Chloride 10 Ml Syringe) 10 ml IV Q12 [facility] Last Admin: 01/11/22 09:05 Dose: 10 ml Documented by: Vancomycin HCl (Vancomycin Per Pharmacy) 1 order IV UD [facility]; Protocol A/P Narrative A/P Narrative: A: *Facial cellulitis / surgical site infection (previously kicked in face by horse > reconstructive surgery in December): -seen by ENT who removed hardware (01/09) Plan -ENT felt the patient would need 3-weeks of IV antibiotics via PICC line & did not feel needed MRSA coverage but would need coverage for other gram-positive's & GN's including Pseudomonas & anaerobes -meropenem started -d/c vancomycin -Analgesics as needed -Will need PICC line for outpatient IV antibiotics. -Dr. Crowe following -ppx: SCD Disposition: home with outpatient IV antibiotics via PICC for about 3 weeks with ENT follow-up. After infection has cleared the patient will need to follow-up with plastic surgery for facial reconstructive surgery Time Spent With Patient Time: Total time spent is greater than 50% in coordination of care (as documented) at patient's floor/unit and/or counseling patient: QUALITY VTE Deep Vein Thrombosis/Pulmonary Embolism Present on Admission: No
[2022-01-11] MEDS: IBUPROFEN 200 MG TABLET PO PRN (13:19)
--- NOTE | 2022-01-11 13:35 | EKG ---
[facility] Test Date: 2022-01-08 Pat Name: Kat Stanton Department: [facility] Room: 132 Gender: Female [employer]er: : [id number] Requested By: Dionisio Gardiner Order Number: [id number] Reading MD: Rui Gonzales Measurements Intervals [place] Rate: 78 P: 35 CO: 166 QRS: 12 QRSD: 88 T: 2 QT: 372 QTc: 424 Interpretive Statements Sinus rhythm Electronically Signed On 01-11-2022 13:35:03 PDT by Rui Gonzales /[email or web address]/[id number]
--- NOTE | 2022-01-11 16:04 | XRay Report ---
INDICATION: PICC LINE PLACEMENT TECHNIQUE: AP portable semierect chest x-ray COMPARISON: None FINDINGS: Right-sided PICC line with its tip in the proximal right atrium. No acute pulmonary parenchymal infiltrate or mass. Heart size and vascularity are normal IMPRESSION: Right-sided PICC line with its tip in the proximal right atrium Interpreted and Authenticated by: Efra Hernandez 01/11/22
[2022-01-11] MEDS: SENNOSIDES 1 TABLET PO SCH (22:15)
[2022-01-12] MEDS: 0.9 % SODIUM CHLORIDE 10 ML SYRINGE IV SCH ×4 (05:49→19:06)
[2022-01-12] MEDS: MEROPENEM 1 GM in 0.9 % SODIUM CHLORIDE 50 ML IV SCH ×3 (05:58→19:05)
[2022-01-12] MEDS: ACETAMINOPHEN 325 MG TABLET PO PRN ×2 (05:58→16:34)
[2022-01-12] MEDS: BACITRACIN TOPICAL OINT 15 GM TUBE TOPICAL SCH ×2 (12:00→19:06)
== END 2022-01-12 19:50 | disposition home or self-care (01) | DRG 857 ==
LOC: ED 16:40 → MEDSUR 21:29
PROVIDERS: ADMIT Internal Medicine; ATTEND Internal Medicine